=== PATIENT | female | born 1965 | race Two or more races ===

== ENCOUNTER → 2018-10-11 11:13 | Outpatient (CLI) | payer BC, SELFPAY ==
[2018-10-16 12:54] LABS: HPV APTIMA, High Risk Negative (Negative)
== END ==
PROVIDERS: Family Provider Family Medicine; PCP Family Medicine; Referring Provider Family Medicine; Visit Provider Family Medicine
DX: Z12.4 Encounter for screening for malignant neoplasm of cervix (principal)
CPT/HCPCS: 88175; G0145

== ENCOUNTER → 2024-01-12 | Outpatient (CLI) | payer BC, SELFPAY ==
--- OUTSIDE RECORDS SUMMARY | 2024-01-12 12:11 | XMS RPT_ITS | CCD ---
Author Organization [facility] Care Team Providers Care Electrical Plumbing Supervisor Name Role Phone RITU NAVARRO Primary Care Physician RITU NAVARRO Admitting Unavailable RITU NAVARRO Attending Unavailable RITU NAVARRO Primary Care Unavailable RITU NAVARRO Consulting Unavailable PROVIDER, UNKNOWN Consulting Unavailable PROVIDER, UNKNOWN Consulting Unavailable RITU NAVARRO Admitting Unavailable RITU NAVARRO Attending Unavailable RITU NAVARRO Primary Care Unavailable RITU NAVARRO Consulting Unavailable PROVIDER, UNKNOWN Consulting Unavailable PROVIDER, UNKNOWN Consulting Unavailable MICHELLE NAVARRONAH Admitting Unavailable RITU NAVARRO Attending Unavailable RITU NAVARRO Primary Care Unavailable RITU NAVARRO Consulting Unavailable PROVIDER, UNKNOWN Consulting Unavailable PROVIDER, UNKNOWN Consulting Unavailable Medications Current Medications Medication Drug Class(es) Dates Sig (Normalized) Sig (Original) acetaminophen 325 mg / HYDROcodone bitartrate 5 mg oral tablet (1 source) Opioid Agonist Start: 01-12-2021 End: 01-19-2021 Liberty 325- 5 mg oral tablet 1-2 tab(s), Oral, q6hr, PRN as needed for pain, Take 1 tab for pain scale 4-7 or take 2 tabs for pain scale 8-10. Do not exceed 6 tablets/day, X 7 day(s), # 42 tab(s), 0 Refill(s), Pharmacy: [id number], S/P cervical spinal fusion Herniate... Start Date: 01/12/21 Stop Date: 01/19/21 Status: Ordered docusate sodium 100 mg oral capsule (2 sources) Start: 01-12-2021 Colace 100 mg oral capsule Dose : 100 mg = 1 cap(s), Oral, BID, PRN Constipation, 0 Refill(s) Start Date: 01/12/21 Status: Ordered FLUoxetine 20 mg oral capsule (3 sources) Serotonin Reuptake Inhibitor Start: 01-10-2021 FLUoxetine 20 mg oral capsule Dose : 20 mg = 1 cap(s), Oral, qDay Start Date: 01/10/21 Status: Ordered gabapentin 100 mg oral capsule (2 sources) Anti-epileptic Agent Start: 01-12-2021 gabapentin 100 mg oral capsule Dose : 100 mg = 1 cap(s), Oral, TID, # 90 cap(s), 0 Refill(s), Pharmacy: [id number], S/P cervical spinal fusion Paresthesia, 152.4, cm, 01/10/21 15:49:00 EDT, Height, 74.3, kg, 01/10/21 15:49:00 EDT, Dosing Weight Start Date: 01/12/21 Status: Ordered ibuprofen 200 mg oral tablet (1 source) Nonsteroidal Anti-inflammatory Drug Start: 02-16-2021 ibuprofen 200 mg oral tablet Dose : 400 mg = 2 tab(s), Oral, q6hr, 0 Refill(s) Start Date: 02/16/21 Status: Ordered tiZANidine 2 mg oral tablet (2 sources) Central alpha-2 Adrenergic Agonist Start: 01-12-2021 tiZANidine 2 mg oral tablet Dose : 2 mg = 1 tab(s), Oral, TID, PRN as needed for muscle spasm, # 30 tab(s), 0 Refill(s), Pharmacy: [id number], 152.4, cm, 01/10/21 15:49:00 EDT, Height, kg, 01/10/21 15:49:00 EDT, Dosing Weight Start Date: 01/12/21 Status: Ordered Problems Problem Classification Problem Date Documented Date Episodic/Chronic Other aftercare (2 sources) Surgical follow-up 02-16-2021 Episodic Other connective tissue disease (1 source) H/O: arthrodesis; Translations: [Arthrodesis status] Onset: 01-12-2021 Episodic Other nervous system disorders (1 source) Spinal cord compression; Translations: [Unspecified cord compression] Onset: 01-12-2021 Chronic Other nervous system disorders (1 source) Spinal cord disease; Translations: [Disease of spinal cord, unspecified] Onset: 01-12-2021 Chronic Other nervous system disorders (1 source) Paresthesia; Translations: [Paresthesia of skin] Onset: 01-12-2021 Episodic Spondylosis; intervertebral disc disorders; other back problems (3 sources) Displacement of cervical intervertebral disc; Translations: [Other cervical disc displacement at C5-C6 level] Onset: 01-12-2021 Chronic Spondylosis; intervertebral disc disorders; other back problems (1 source) Spinal stenosis in cervical region; Translations: [Spinal stenosis, cervical region] Onset: 01-12-2021 Episodic Results Test Name Value Interpretation Reference Range Facility RADIOLOGY 12-20-2023 RADIOLOGY [place] [address] Patient: REMY GAY Phone#: : 1965 Age: 57 Gender: F Pt. Type: Out Account: [id number] Location: [facility] Ordering: RITU NAVARRO Exam Date: 12/15/2023/13:59 Family Phys: Charge Code: [id number] Physician: [place] Order #: [id number] Dose#: PROCEDURE: BILATERAL SCREENING BREAST TOMOSYNTHESIS MAMMOGRAM WITH CAD COMPARISON: [facility], 3D BILAT SCREEN, 10/11/2021, 13:01. [facility], 3D BILAT SCREEN, 11/08/2022, 14:08. INDICATIONS: Screening. BREAST COMPOSITION: Heterogeneously dense, which may obscure small masses. FINDINGS: DIAGNOSTIC CATEGORY 1--NEGATIVE NO CHANGE FROM COMPARISON ASSESSMENT. RIGHT BREAST: No significant suspicious finding. No significant change has occurred. LEFT BREAST: No significant suspicious finding. No significant change has occurred. RECOMMENDATIONS: ROUTINE MAMMOGRAM AND CLINICAL EVALUATION IN 12 MONTHS. PLEASE NOTE: A NORMAL MAMMOGRAM DOES NOT EXCLUDE THE POSSIBILITY OF BREAST CANCER. A CLINICALLY SUSPICIOUS PALPABLE LUMP SHOULD BE BIOPSIED. THIS FACILITY UTILIZES A REMINDER SYSTEM TO ENSURE THAT ALL PATIENTS RECEIVE REMINDER LETTERS FOR APPOINTMENTS. THIS INCLUDES REMINDERS FOR ROUTINE MAMMOGRAMS, DIAGNOSITC MAMMOGRAMS, OR OTHER BREAST IMAGING INTERVENTIONS WHEN APPROPRIATE. THIS PATIENT WILL BE PLACED IN THE APPROPRIATE REMINDER SYSTEM. Dictated by: Kandy Pandey MD on 12/20/2023 at 11:11 Approved by: Kandy Pandey MD on 12/20/2023 at 11:15 [facility] 3D MAMM BILAT SCREENon 12-14 3D MAMM BILAT SCREEN [place] [address] Patient: REMY GAY Phone#: : 1965 Age: 57 Gender: F Pt. Type: Out Account: [id number] Location: [id number] Ordering: RITU NAVARRO Exam Date: 12/15/2023/13:59 Family Phys: Charge Code: [id number] Physician: [place] Order #: [id number] Dose#: PROCEDURE: BILATERAL SCREENING BREAST TOMOSYNTHESIS MAMMOGRAM WITH CAD COMPARISON: [facility], 3D BILAT SCREEN, 10/11/2021, 13:01. [facility], 3D BILAT SCREEN, 11/08/2022, 14:08. INDICATIONS: Screening. BREAST COMPOSITION: Heterogeneously dense, which may obscure small masses. FINDINGS: DIAGNOSTIC CATEGORY 1--NEGATIVE NO CHANGE FROM COMPARISON ASSESSMENT. RIGHT BREAST: No significant suspicious finding. No significant change has occurred. LEFT BREAST: No significant suspicious finding. No significant change has occurred. RECOMMENDATIONS: ROUTINE MAMMOGRAM AND CLINICAL EVALUATION IN 12 MONTHS. PLEASE NOTE: A NORMAL MAMMOGRAM DOES NOT EXCLUDE THE POSSIBILITY OF BREAST CANCER. A CLINICALLY SUSPICIOUS PALPABLE LUMP SHOULD BE BIOPSIED. THIS FACILITY UTILIZES A REMINDER SYSTEM TO ENSURE THAT ALL PATIENTS RECEIVE REMINDER LETTERS FOR APPOINTMENTS. THIS INCLUDES REMINDERS FOR ROUTINE MAMMOGRAMS, DIAGNOSITC MAMMOGRAMS, OR OTHER BREAST IMAGING INTERVENTIONS WHEN APPROPRIATE. THIS PATIENT WILL BE PLACED IN THE APPROPRIATE REMINDER SYSTEM. Dictated by: Kandy Pandey MD on 12/20/2023 at 11:11 Approved by: Kandy Pandey MD on 12/20/2023 at 11:15 [facility] XR SPINE CERVICAL AP/LAT/FLE X/EXTon 05-19-2021 XR SPINE CERVICAL AP/LAT/FLEX/EXT ORIGINAL EXAMINATION: FIVE XRAY VIEWS OF THE CERVICAL SPINE INCLUDING FLEX/EX VIEWS 05/18/2021 10:10 am COMPARISON: MRI of the cervical spine on 01/10/2021 HISTORY: ORDERING SYSTEM PROVIDED HISTORY: Reason for Exam: cervical disc herniation - postoperative Surgery on 01/11/2021 FINDINGS: Anterior cervical disc fusion has been performed the C5-C6 level. The hardware is in satisfactory position. Cervical spine alignment is normal, including flexion and extension lateral views. The vertebral bodies are normal in height. Posterior elements are unremarkable. There is no prevertebral soft tissue swelling. IMPRESSION: Satisfactory postoperative appearance of anterior cervical disc fusion at C5-C6. Cervical spine alignment is normal. Interpreted by: Judson Bradford MD Preliminary Report By: Judson Bradford MD Electronically signed By Judson Bradford MD Dictated Date: 05/19/2021 2:08:18 AM Prelim Date: 05/19/2021 2:11:33 AM Sign Date: 05/19/2021 2:11:33 AM Ordering Provider: ALEXIS Suazo [facility] ([place]) .Auto Diffon 01-11-2021 Basophil, Absolute 0.00 10 3/mcL Normal 0.00-0.27 [facility] ([place]) Comment on above: Performed By: #### C BC, ADIFF, ANEU, FIB, APTT, PRO, BMP, GFR #### [address] [address] Basophils/100 WBC (Bld) 0.3 % Normal 0.0-2.5 [facility] ([place]) Comment on above: Performed By: #### C BC, ADIFF, ANEU, FIB, APTT, PRO, BMP, GFR #### [address] [address] Eosinophil, Absolute 0.00 10 3/mcL Normal 0.00-0.65 [facility] ([place]) Comment on above: Performed By: #### C BC, ADIFF, ANEU, FIB, APTT, PRO, BMP, GFR #### [address] [address] Eosinophils/100 WBC (Bld) 0.1 % Normal 0.0-6.0 [facility] ([place]) Comment on above: Performed By: #### C BC, ADIFF, ANEU, FIB, APTT, PRO, BMP, GFR #### [address] [address] Lymphocyte, Absolute 0.30 10 3/mcL Low 0.90-4.32 [facility] ([place]) Comment on above: Performed By: #### C BC, ADIFF, ANEU, FIB, APTT, PRO, BMP, GFR #### [address] [address] Lymphocytes/100 WBC (Bld) 2.9 % Low 20.0-40.0 [facility] ([place]) Comment on above: Performed By: #### C BC, ADIFF, ANEU, FIB, APTT, PRO, BMP, GFR #### [address] [address] Monocyte, Absolute 0.20 10 3/mcL Normal 0.09-1.40 [facility] ([place]) Comment on above: Performed By: #### C BC, ADIFF, ANEU, FIB, APTT, PRO, BMP, GFR #### [address] [address] Monocytes/100 WBC (Bld) 1.9 % Low 2.0-13.0 [facility] ([place]) Comment on above: Performed By: #### C BC, ADIFF, ANEU, FIB, APTT, PRO, BMP, GFR #### [address] [address] Neutrophils/100 WBC (Bld) 94.8 % High 50.0-75.0 [facility] ([place]) Comment on above: Performed By: #### C BC, ADIFF, ANEU, FIB, APTT, PRO, BMP, GFR #### [address] [address] .GFRon 01-11-2021 GFR >60 Normal [facility] ([place]) Comment on above: Result Comment: GFR Population mean for , Non- Americans Ages 20-29 = 116 mL/min/1.73 sq.m. Ages 30-39 = 107 mL/min/1.73 sq.m. Ages 40-49 = 99 mL/min/1.73 sq.m. Ages 50-59 = 93 mL/min/1.73 sq.m. Ages 60-69 = 85 mL/min/1.73 sq.m. Ages 70+ = 75 mL/min/1.73 sq.m. Chronic Kidney Disease: Less than 60 mL/min/1.73 square meters End Stage Renal Disease: Less than 15 mL/min/1.73 square meters Performed By: #### C BC, ADIFF, ANEU, FIB, APTT, PRO, BMP, GFR #### [address] [address] GFR Non- >60 Normal [facility] ([place]) Comment on above: Result Comment: GFR Population mean for , Non- Americans Ages 20-29 = 116 mL/min/1.73 sq.m. Ages 30-39 = 107 mL/min/1.73 sq.m. Ages 40-49 = 99 mL/min/1.73 sq.m. Ages 50-59 = 93 mL/min/1.73 sq.m. Ages 60-69 = 85 mL/min/1.73 sq.m. Ages 70+ = 75 mL/min/1.73 sq.m. Chronic Kidney Disease: Less than 60 mL/min/1.73 square meters End Stage Renal Disease: Less than 15 mL/min/1.73 square meters Performed By: #### C BC, ADIFF, ANEU, FIB, APTT, PRO, BMP, GFR #### [address] [address] .NEUABSon 01-11-2021 Neutrophil, Absolute 11.20 10 3/mcL High 2.25-8.10 [facility] ([place]) Comment on above: Performed By: #### C BC, ADIFF, ANEU, FIB, APTT, PRO, BMP, GFR #### [address] [address] APTTon 01-11-2021 aPTT Coag (Bld) [Time] 30.3 s Normal 25.0-35.0 [facility] ([place]) Comment on above: Result Comment: For Heparin anticoagulation therapy, the recommended therapeutic range is: 54-77 seconds (APTT Correlation with Anti-Xa therapeutic range of 0.3-0.7 units/ml). PLEASE REFERENCE THE PHARMACY PROTOCOL FOR DOSING. Performed By: #### C BC, ADIFF, ANEU, FIB, APTT, PRO, BMP, GFR #### [address] [address] Heparin dose (APTT) None Normal [facility] ([place]) Comment on above: Performed By: #### C BC, ADIFF, ANEU, FIB, APTT, PRO, BMP, GFR #### [address] [address] BMPon 01-11-2021 BUN/Creatinine Ratio 19.5 ratio Normal 10.0-22.0 [facility] ([place]) Comment on above: Performed By: #### C BC, ADIFF, ANEU, FIB, APTT, PRO, BMP, GFR #### [address] [address] Calcium [Mass/Vol] 9.4 mg/dL Normal 8.7-10.4 [facility] ([place]) Comment on above: Result Comment: No te - New Reference Range in effect 19 Performed By: #### C BC, ADIFF, ANEU, FIB, APTT, PRO, BMP, GFR #### [address] [address] Chloride [Moles/Vol] 108 mmol/L Normal 98-110 [facility] ([place]) Comment on above: Performed By: #### C BC, ADIFF, ANEU, FIB, APTT, PRO, BMP, GFR #### [address] [address] CO2 [Moles/Vol] 26 mmol/L Normal 22-32 [facility] ([place]) Comment on above: Performed By: #### C BC, ADIFF, ANEU, FIB, APTT, PRO, BMP, GFR #### [address] [address] Creatinine [Mass/Vol] 0.82 mg/dL Normal 0.50-1.20 [facility] ([place]) Comment on above: Performed By: #### C BC, ADIFF, ANEU, FIB, APTT, PRO, BMP, GFR #### [address] [address] Electrolyte Balance 7.0 mEq/L Normal 4.0-15.0 [facility] ([place]) Comment on above: Performed By: #### C BC, ADIFF, ANEU, FIB, APTT, PRO, BMP, GFR #### [place] [id number] Glucose [Mass/Vol] 195 mg/dL High 70-110 [facility] ([place]) Comment on above: Performed By: #### C BC, ADIFF, ANEU, FIB, APTT, PRO, BMP, GFR #### [place] [id number] Potassium [Moles/Vol] 4.6 mmol/L Normal 3.5-5.0 [facility] ([place]) Comment on above: Result Comment: Spec imen slightly hemolyzed. Performed By: #### C BC, ADIFF, ANEU, FIB, APTT, PRO, BMP, GFR #### [place] [id number] Sodium [Moles/Vol] 141 mmol/L Normal 136-145 [facility] ([place]) Comment on above: Performed By: #### C BC, ADIFF, ANEU, FIB, APTT, PRO, BMP, GFR #### [place] [address] Urea nitrogen [Mass/Vol] 16.0 mg/dL Normal 8.0-22.0 [facility] ([place]) Comment on above: Performed By: #### C BC, ADIFF, ANEU, FIB, APTT, PRO, BMP, GFR #### [place] [id number] CBCon 01-11-2021 Erythrocyte distribution width (RBC) [Ratio] 14.2 % Normal 11.5-15.5 [facility] ([place]) Comment on above: Performed By: #### C BC, ADIFF, ANEU, FIB, APTT, PRO, BMP, GFR #### [place] [id number] Hematocrit (Bld) [Volume fraction] 38.7 % Normal 34.0-46.0 [facility] ([place]) Comment on above: Performed By: #### C BC, ADIFF, ANEU, FIB, APTT, PRO, BMP, GFR #### [place] [address] Hgb 12.9 G/dL Normal 12.0-16.0 [facility] ([place]) Comment on above: Performed By: #### C BC, ADIFF, ANEU, FIB, APTT, PRO, BMP, GFR #### [place] [address] MCH (RBC) [Entitic mass] 29.6 pg Normal 27.0-33.0 [facility] ([place]) Comment on above: Performed By: #### C BC, ADIFF, ANEU, FIB, APTT, PRO, BMP, GFR #### [place] [address] MCHC 33.2 G/dL Normal 32.0-36.0 [facility] ([place]) Comment on above: Performed By: #### C BC, ADIFF, ANEU, FIB, APTT, PRO, BMP, GFR #### [place] [address] MCV (RBC) [Entitic vol] 89.1 fL Normal 80.0-99.0 [facility] ([place]) Comment on above: Performed By: #### C BC, ADIFF, ANEU, FIB, APTT, PRO, BMP, GFR #### [place] [address] Platelet 262 10 3/mcL Normal 150-450 [facility] ([place]) Comment on above: Performed By: #### C BC, ADIFF, ANEU, FIB, APTT, PRO, BMP, GFR #### [place] [address] Platelet mean volume (Bld) [Entitic vol] 7.8 fL Normal 6.6-10.5 [facility] ([place]) Comment on above: Performed By: #### C BC, ADIFF, ANEU, FIB, APTT, PRO, BMP, GFR #### [place] [id number] [address] [place] [address] RBC 4.35 10 6/mcL Normal 4.10-5.30 [facility] ([place]) Comment on above: Performed By: #### C BC, ADIFF, ANEU, FIB, APTT, PRO, BMP, GFR #### [facility] [address] [place], [place] [id number] WBC 11.80 10 3/mcL High 4.50-10.80 [facility] ([place]) Comment on above: Performed By: #### C BC, ADIFF, ANEU, FIB, APTT, PRO, BMP, GFR #### [facility] [address] [place] [address] FIBon 01-11-2021 Fibrinogen 484 mg/dL Normal 250-550 [facility] ([place]) Comment on above: Performed By: #### C BC, ADIFF, ANEU, FIB, APTT, PRO, BMP, GFR #### [place] [address] LABORATORYOrdered By: Ivy Shields on 01-11-2021 aPTT Coag (PPP) [Time] 30.3 s Invalid Interpretation Code 25.0 - 35.0 seconds Auto Coag SS Fibrinogen Coag (PPP) [Mass/Vol] 484 mg/dL Invalid Interpretation Code 250 - 550 mg/dL AH Auto Coag SS Heparin dose (APTT) None Invalid Interpretation Code AH Auto Coag SS INR Coag (PPP) [Relative time] 1.0 {INR} Invalid Interpretation Code Auto Coag SS PT Coag (PPP) [Time] 11.8 s Invalid Interpretation Code 9.0 - 14.8 seconds AH Auto Coag SS LABORATORYOrdered By: SYSTEM SYSTEM on 01-11-2021 Basophils (Bld) [#/Vol] 0.00 103/mcL Invalid Interpretation Code 0.00 - 0.27 10^3/mcL Remisol SS Basophils/100 WBC (Bld) 0.3 % Invalid Interpretation Code 0.0 - 2.5 % Remisol SS Calcium [Mass/Vol] 9.4 mg/dL Invalid Interpretation Code 8.7 - 10.4 mg/dL ADM SS Chloride [Moles/Vol] 108 mmol/L Invalid Interpretation Code 98 - 110 mEq/L AH ADM SS CO2 [Moles/Vol] 26 mmol/L Invalid Interpretation Code 22 - 32 mEq/L AH ADM SS Creatinine [Mass/Vol] 0.82 mg/dL Invalid Interpretation Code 0.50 - 1.20 mg/dL AH ADM SS Electrolyte Balance 7.0 mEq/L Invalid Interpretation Code 4.0 - 15.0 mEq/L AH ADM SS Eosinophils (Bld) [#/Vol] 0.00 103/mcL Invalid Interpretation Code 0.00 - 0.65 10^3/mcL AH Remisol SS Eosinophils/100 WBC (Bld) 0.1 % Invalid Interpretation Code 0.0 - 6.0 % AH Remisol SS Erythrocyte distribution width (RBC) [Ratio] 14.2 % Invalid Interpretation Code 11.5 - 15.5 % AH Remisol SS GFR/1.73 sq M.predicted among blacks MDRD (S/P/Bld) [Vol rate/Area] ml/min/1.73sqm Invalid Interpretation Code AH Chemistry S GFR/1.73 sq M.predicted among non-blacks MDRD (S/P/Bld) [Vol rate/Area] ml/min/1.73sqm Invalid Interpretation Code Chemistry S Glucose [Mass/Vol] 195 mg/dL Invalid Interpretation Code 70 - 110 mg/dL AH ADM SS Hematocrit (Bld) [Volume fraction] 38.7 % Invalid Interpretation Code 34.0 - 46.0 % AH Remisol SS Hemoglobin (Bld) [Mass/Vol] 12.9 G/dL Invalid Interpretation Code 12.0 - 16.0 G/dL AH Remisol SS Lymphocytes (Bld) [#/Vol] 0.30 103/mcL Invalid Interpretation Code 0.90 - 4.32 10^3/mcL AH Remisol SS Lymphocytes/100 WBC (Bld) 2.9 % Invalid Interpretation Code 20.0 - 40.0 % AH Remisol SS MCH (RBC) [Entitic mass] 29.6 pg Invalid Interpretation Code 27.0 - 33.0 pg AH Remisol SS MCHC (RBC) [Mass/Vol] 33.2 G/dL Invalid Interpretation Code 32.0 - 36.0 G/dL AH Remisol SS MCV (RBC) [Entitic vol] 89.1 fL Invalid Interpretation Code 80.0 - 99.0 fL AH Remisol SS Monocytes (Bld) [#/Vol] 0.20 103/mcL Invalid Interpretation Code 0.09 - 1.40 10^3/mcL AH Remisol SS Monocytes/100 WBC (Bld) 1.9 % Invalid Interpretation Code 2.0 - 13.0 % AH Remisol SS Neutrophils (Bld) [#/Vol] 11.20 103/mcL Invalid Interpretation Code 2.25 - 8.10 10^3/mcL AH Remisol SS Neutrophils/100 WBC (Bld) 94.8 % Invalid Interpretation Code 50.0 - 75.0 % AH Remisol SS Platelet mean volume (Bld) [Entitic vol] 7.8 fL Invalid Interpretation Code 6.6 - 10.5 fL AH Remisol SS Platelets (Bld) [#/Vol] 262 103/mcL Invalid Interpretation Code 150 - 450 10^3/mcL AH Remisol SS Potassium [Moles/Vol] 4.6 mmol/L Invalid Interpretation Code 3.5 - 5.0 mEq/L AH ADM SS Comment on above: Result Comment: Spec imen slightly hemolyzed. RBC (Bld) [#/Vol] 4.35 106/mcL Invalid Interpretation Code 4.10 - 5.30 10^6/mcL AH Remisol SS Sodium [Moles/Vol] 141 mmol/L Invalid Interpretation Code 136 - 145 mEq/L AH ADM SS Urea nitrogen [Mass/Vol] 16.0 mg/dL Invalid Interpretation Code 8.0 - 22.0 mg/dL AH ADM SS Urea nitrogen/Creatinine [Mass ratio] 19.5 ratio Invalid Interpretation Code 10.0 - 22.0 ratio AH ADM SS WBC (Bld) [#/Vol] 11.80 103/mcL Invalid Interpretation Code 4.50 - 10.80 10^3/mcL AH Remisol SS PROon 01-11-2021 INR Coag (PPP) [Relative time] 1.0 {INR} Normal [facility] ([place]) Comment on above: Result Comment: The [employer] (CHEST, 1992, 102:312S-25S) recommended therapeutic range for oral anticoagulant therapy is: LOW RISK: Prophylaxis of venous thrombosis INR: 2.0-3.0 Treatment of pulmonary embolism 2.0-3.0 Prevention of systemic embolism 2.0-3.0 HIGH RISK: Mechanical prosthetic valves 2.5-3.5 Performed By: #### C BC, ADIFF, ANEU, FIB, APTT, PRO, BMP, GFR #### [address] [address] PT Coag (PPP) [Time] 11.8 s Normal 9.0-14.8 [facility] ([place]) Comment on above: Result Comment: Effe ctive 10/02/07, Protime results may be affected by some antibiotics (i.e. Ciprofloxacin, Azithromycin, Bactrim) which may potentiate the action of oral anticoagulants, with further increases in Protime/INR. Performed By: #### C BC, ADIFF, ANEU, FIB, APTT, PRO, BMP, GFR #### [address] [address] XR FLUORO 1-2 HRS TECH TIMEo n 01-11-2021 XR FLUORO 1-2 HRS TECH TIME ORIGINAL EXAMINATION: SPOT FLUOROSCOPIC IMAGES 01/11/2021 8:55 am TECHNIQUE: Fluoroscopy was provided by the radiology department for procedure. Radiologist was not present during examination. FLUOROSCOPY DOSE AND TYPE OR TIME AND EXPOSURES: Fluoro time: 12.5 seconds Radiation dose: 1.27 mGy 3 images were saved COMPARISON: MRI of the cervical spine on 01/10/2021 HISTORY: ORDERING SYSTEM PROVIDED HISTORY: Reason for Exam: CERV HNP Intraprocedural imaging. FINDINGS: 3 spot images of the cervical spine were obtained. Guidance for anterior cervical disc fusion at the C5-C6 level was provided. IMPRESSION: Intraprocedural fluoroscopic spot images as above. See separate procedure report for more information. Interpreted by: Judson Bradford MD Preliminary Report By: Judson Bradford MD Electronically signed By Judson Bradford MD Dictated Date: 01/11/2021 9:24:56 AM Prelim Date: 01/11/2021 9:26:54 AM Sign Date: 01/11/2021 9:26:54 AM Ordering Provider: ALEXIS Suazo [facility] ([place]) MRI SPINE CERVICAL W/O CONTR Elias 01-10-2021 MRI SPINE CERVICAL W/O CONTRAST ORIGINAL EXAMINATION: MRI OF THE CERVICAL SPINE WITHOUT CONTRAST 01/10/2021 2:55 am TECHNIQUE: Multiplanar multisequence MRI of the cervical spine was performed without the administration of intravenous contrast. COMPARISON: None. HISTORY: ORDERING SYSTEM PROVIDED HISTORY: Reason for Exam: Paresthesias FINDINGS: BONES/ALIGNMENT: There is normal alignment of the spine. The vertebral body heights are maintained. The bone marrow signal appears unremarkable. SPINAL CORD: There is mild cord edema at C5-C6 secondary to a prominent disc protrusion with ligamentum flavum hypertrophy. SOFT TISSUES: No paraspinal mass identified. C2-C3: There is no significant disc protrusion, spinal canal stenosis or neural foraminal narrowing. C3-C4: There is no significant disc protrusion, spinal canal stenosis or neural foraminal narrowing. C4-C5: There is no significant disc protrusion, spinal canal stenosis or neural foraminal narrowing. C5-C6: Disc protrusion at C5-C6 with moderate to severe narrowing of the central spinal canal, ligamentum flavum hypertrophy. Moderate narrowing of the neural foramen on the left and on the right. C6-C7: There is no significant disc protrusion, spinal canal stenosis or neural foraminal narrowing. C7-T1: There is no significant disc protrusion, spinal canal stenosis or neural foraminal narrowing. IMPRESSION: Prominent disc protrusion at C5-C6 with moderate to severe narrowing of the spinal canal at this level with bilateral at least moderate neural foraminal stenosis. Mild cord edema is present at the level of the disc protrusion. Interpreted by: Galo Bennett MD Preliminary Report By: Galo Bennett MD Electronically signed By Galo Bennett MD Dictated Date: 01/10/2021 3:37:24 AM Prelim Date: 01/10/2021 3:41:27 AM Sign Date: 01/10/2021 3:41:27 AM Ordering Provider: OSMANY Suazo [facility] ([place]) Vital Signs Date Time Vital Sign Value Performing Clinician Matthew mccollum 01-12-2021 11:01-0400 Body temperature 98.24 [degF] DR ALEXIS LOOMIS MD [facility] 01-12-2021 11:01-0400 Diastolic blood pressure 62 mm[Hg] DR ALEXIS LOOMIS MD [facility] 01-12-2021 11:01-0400 Heart rate 94 /min DR ALEXIS LOOMIS MD [facility] 01-12-2021 11:01-0400 Reason For Taking VItal Signs DR ALEXIS LOOMIS MD [facility] 01-12-2021 11:01-0400 Respiratory rate 16 /min DR ALEXIS LOOMIS MD [facility] 01-12-2021 11:01-0400 Systolic blood pressure 121 mm[Hg] DR ALEXIS LOOMIS MD [facility] 01-12-2021 07:35-0400 Body temperature 98.06 [degF] DR ALEXIS LOOMIS MD [facility] 01-12-2021 07:35-0400 Diastolic blood pressure 57 mm[Hg] DR ALEXIS LOOMIS MD [facility] 01-12-2021 07:35-0400 Heart rate 86 /min DR ALEXIS LOOMIS MD [facility] 01-12-2021 07:35-0400 Mean blood pressure 78 mm[Hg] DR ALEXIS LOOMIS MD [facility] 01-12-2021 07:35-0400 Reason For Taking VItal Signs DR ALEXIS LOOMIS MD [facility] 01-12-2021 07:35-0400 Respiratory rate 16 /min DR ALEXIS LOOMIS MD [facility] 01-12-2021 07:35-0400 Systolic blood pressure 119 mm[Hg] DR ALEXIS LOOMIS MD [facility] 01-12-2021 03:22-0400 Body temperature 98.42 [degF] DR ALEXIS LOOMIS MD [facility] 01-12-2021 03:22-0400 Diastolic blood pressure 71 mm[Hg] DR ALEXIS LOOMIS MD [facility] 01-12-2021 03:22-0400 Heart rate 90 /min DR ALEXIS LOOMIS MD [facility] 01-12-2021 03:22-0400 Mean blood pressure 93 mm[Hg] DR ALEXIS LOOMIS MD [facility] 01-12-2021 03:22-0400 Respiratory rate 16 /min DR ALEXIS LOOMIS MD [facility] 01-12-2021 03:22-0400 Systolic blood pressure 136 mm[Hg] DR ALEXIS LOOMIS MD [facility] 01-11-2021 22:59-0400 Mean blood pressure 92 mm[Hg] DR ALEXIS LOOMIS MD [facility] 01-11-2021 14:47-0400 Heart rate 84 /min DR ALEXIS LOOMIS MD [facility] 01-11-2021 14:47-0400 Reason For Taking VItal Signs DR ALEXIS LOOMIS MD [facility] 01-11-2021 10:52-0400 Heart rate 80 /min DR ALEXIS LOOMIS MD [facility] 01-11-2021 10:25-0400 Heart rate 78 /min DR ALEXIS LOOMIS MD [facility] 01-11-2021 10:03-0400 Body temperature 96.98 [degF] DR ALEXIS LOOMIS MD [facility] 01-11-2021 10:03-0400 Diastolic Blood Pressure NBP [address] ALEXIS LOOMIS MD [facility] 01-11-2021 10:03-0400 Mean blood pressure 93 mm[Hg] DR ALEXIS LOOMIS MD [facility] 01-11-2021 10:03-0400 Systolic Blood Pressure NBP [address] ALEXIS LOOMIS MD [facility] 01-11-2021 09:53-0400 Diastolic Blood Pressure NBP [address] ALEXIS LOOMIS MD [facility] 01-11-2021 09:53-0400 Mean blood pressure 94 mm[Hg] DR ALEXIS LOOMIS MD [facility] 01-11-2021 09:53-0400 Systolic Blood Pressure NBP [address] ALEXIS LOOMIS MD [facility] 01-11-2021 09:36-0400 Diastolic Blood Pressure NBP [address] ALEXIS LOOMIS MD [facility] 01-11-2021 09:36-0400 Mean blood pressure 92 mm[Hg] DR ALEXIS LOOMIS MD [facility] 01-11-2021 09:36-0400 Systolic Blood Pressure NBP [address] ALEXIS LOOMIS MD [facility] 01-11-2021 09:06-0400 Body temperature 96.8 [degF] DR ALEXIS LOOMIS MD [facility] 01-11-2021 08:45-0400 Body temperature 96.26 [degF] DR ALEXIS LOOMIS MD [facility] 01-11-2021 08:40-0400 Body temperature 96.24 [degF] DR ALEXIS LOOMIS MD [facility] 01-11-2021 08:35-0400 Body temperature 96.22 [degF] DR ALEXIS LOOMIS MD [facility] 01-10-2021 15:49-0400 Body height 152.[address] ALEXIS LOOMIS MD [facility] 01-10-2021 15:49-0400 Body weight 74.[address] ALEXIS LOOMIS MD [facility] 01-10-2021 15:49-0400 Body weight 31.99 kg/m2 DR ALEXIS LOOMIS MD [facility] 01-09-2021 23:07-0400 Body weight 74.[address] ALEXIS LOOMIS MD [facility] Encounters Encounter Date Encounter Type Care Provider Facility Start: 12-20-2023 End: 12-20-2023 ambulatory [facility] Start: 12-15-2023 End: 12-15-2023 ambulatory [facility] Start: 06-28-2023 ambulatory [place] Start: 05-18-2021 End: 05-18-[address] LAEXIS LOOMIS MD [facility] Start: 02-16-2021 End: 02-16-[address] ALEXIS LOOMIS MD [facility] Start: 01-09-2021 End: 01-12-2021 Evaluation and management of inpatient DR ALEXIS LOOMIS MD [facility] Procedures Date Procedure Procedure Detail Performing Clinician Start: 01-11-2021 Cervical (qualifier value) DR ALEXIS LOOMIS MD section DR ALEXIS BLAKELY MD Immunizations Immunization Date Immunization Notes Care Provider Fa cili 2020 influenza virus vaccine, unspecified formulation DR ALEXIS LOOMIS MD [facility] 04-20-2020 SARS-CoV-2 (COVID-19 ) mRNA-[address] ALEXIS LOOMIS MD [facility] 03-20-2020 SARS-CoV-2 (COVID-19 ) mRNA-[address] ALEXIS LOOMIS MD [facility] Payers Date Payer Category Payer Unknown [id number] 1965 Unknown [id number] Unknown [id number] Social History Date Type Detail Facility Start: 01-10-2021 Never smoked shad castellon (finding) [facility] Sex Assigned At Female [facility] Medical Equipment Procedure Code Equipment Code Equipment Origin al Text Equipment Identifier Dates FDA Start: 01-11-2021 FDA Start: 01-11-2021 FDA Start: 01-11-2021 FDA Start: 01-11-2021 FDA Start: 01-11-2021 FDA Start: 01-11-2021 FDA Start: 01-11-2021 FDA Start: 01-11-2021 FDA Start: 01-11-2021 Hospital Discharge instructions 01-12-2021 Note Date & Type Note Facility 01-12-2021 Hospital Discharg e instructions Patient Education 01/12/2021 12:21:17 Anterior Cervical Diskectomy and Fusion, Care After Anterior Cervical Diskectomy and Fusion, Care After This sheet gives you information about how to care for yourself after your procedure. Your health care provider may also give you more specific instructions. If you have problems or questions, contact your health care provider. What can I expect after the procedure? After the procedure, it is common to have: Neck pain. Discomfort when swallowing. Slight hoarseness. Follow these instructions at home: If you have a neck brace: Wear it as told by your health care provider. Remove it only as told by your health care provider. Keep the brace clean and dry. Ask your health care provider if you should remove the brace to bathe or shower. Incision care Follow instructions from your health care provider about how to take care of your incision. Make sure you: ?Wash your hands with soap and water before and after you change your bandage (dressing). If soap and water are not available, use hand supervisor public message service. ?Change your dressing as told by your health care provider. ?Leave stitches (sutures), skin glue, or adhesive strips in place. These skin closures may need to stay in place for 2 weeks or longer. If adhesive strip edges start to loosen and curl up, you may trim the loose edges. Do not remove adhesive strips completely unless your health care provider tells you to do that. Check your incision area every day for signs of infection. Check for: ?Redness, swelling, or pain. ?Fluid or blood. ?Warmth. ?Pus or a bad smell. Managing pain, stiffness, and swelling Take xhqo-twk-dtwyquk and prescription medicines only as told by your health care provider. If directed, put ice on the injured area. ?If you have a removable brace, remove it as told by your health care provider. ?Put ice in a plastic bag. ?Place a towel between your skin and the bag. ?Leave the ice on for 20 minutes, 2 3 times a day. Activity Return to your normal activities as told by your health care provider. Ask your health care provider what activities are safe for you. Do exercises as told by your health care provider. Do not take baths, swim, or use a hot tub until your health care provider approves. Do not lift anything that is heavier than 10 lb (4.5 kg), or the limit that you are told, until your health care provider says that it is safe. General instructions Ask your health care provider if the medicine prescribed to you: ?Requires you to avoid driving or using heavy machinery. ?Can cause constipation. You may need to take actions to prevent or treat constipation, such as: ?Drink enough fluid to keep your urine pale yellow. ?Take xcts-dur-kcnuqrc or prescription medicines. ?Eat foods that are high in fiber, such as beans, whole grains, and fresh fruits and vegetables. ?Limit foods that are high in fat and processed sugars, such as fried and sweet foods. Do not use any products that contain nicotine or tobacco, such as cigarettes, e-cigarettes, and chewing tobacco. These can delay healing. If you need help quitting, ask your health care provider. Keep all follow-up visits and physical therapy appointments as told by your health care provider. This is important. Contact a health care provider if you have: A fever. Redness, swelling, or pain around your incision. Fluid or blood coming from your incision. Pus or a bad smell coming from your incision. Pain that is not controlled by your pain medicine. Increasing hoarseness or trouble swallowing. Get help right away if you have: Severe pain. Sudden numbness or weakness in your arms. Warmth, tenderness, or swelling in your calf. Chest pain. Difficulty breathing. Summary After the procedure, it is common to have neck pain, discomfort when swallowing, and slight hoarseness. Follow instructions from your health care provider about how to take care of your incision. Check your incision area every day for signs of infection. Return to your normal activities as told by your health care provider. Ask your health care provider what activities are safe for you. Contact a health care provider if you have signs of infection at your incision. This information is not intended to replace advice given to you by your health care provider. Make sure you discuss any questions you have with your health care provider. Document Released: 04/01/2016 Document Revised: 11/29/2018 Document Reviewed: 11/29/2018 [employer] Patient Education 2020 [employer]. 01/12/2021 12:21:14 Anterior Cervical Diskectomy and Fusion Anterior Cervical Diskectomy and Fusion Anterior cervical diskectomy and fusion is a surgery to remove and replace an intervertebral disk. Intervertebral disks are plates of cartilage located between the bones of the spine. This surgery is done when an intervertebral disk in the neck puts pressure on the spine or on a nerve. The surgery is done through the front (anterior) part of the neck. During the surgery, the damaged disk is removed and replaced with a plastic implant, a bone from another part of the body (bone graft), or both. Sometimes metal plates and screws (hardware) are also put in the neck to help keep the implant or bone graft in place and to allow the bones to grow together (fuse). Tell a health care provider about: Any allergies you have. All medicines you are taking, including vitamins, herbs, eye drops, creams, and thrj-fwh-gfkojyt medicines. Any problems you or family members have had with anesthetic medicines. Any blood disorders you have. Any surgeries you have had. Any medical conditions you have or have had. Whether you are or may be . What are the risks? Generally, this is a safe procedure. However, problems may occur, including: Infection. Bleeding, which can sometimes require a blood transfusion. Injury to surrounding structures, including nerves. Leakage of fluid from the brain or spinal cord (cerebrospinal fluid). Blood clots. Temporary breathing difficulties. What happens before the procedure? Medicines Ask your health care provider about: Changing or stopping your regular medicines. This is especially important if you are taking diabetes medicines or blood thinners. Taking medicines such as aspirin and ibuprofen. These medicines can thin your blood. Do not take these medicines unless your health care provider tells you to take them. Taking zllo-djh-ktyhrbn medicines, vitamins, herbs, and supplements. Staying hydrated Follow instructions from your health care provider about hydration, which may include: Up to 2 hours before the procedure you may continue to drink clear liquids, such as water, clear fruit juice, black coffee, and plain tea. Eating and drinking Follow instructions from your health care provider about eating and drinking, which may include: 8 hours before the procedure stop eating heavy meals or foods, such as meat, fried foods, or fatty foods. 6 hours before the procedure stop eating light meals or foods, such as toast or cereal. 6 hours before the procedure stop drinking milk or drinks that contain milk. 2 hours before the procedure stop drinking clear liquids. General instructions Do not use any products that contain nicotine or tobacco for at least 4 weeks before the procedure. These products include cigarettes, e-cigarettes, and chewing tobacco. If you need help quitting, ask your health care provider. Ask your health care provider: ?How your surgery site will be marked. ?What steps will be taken to help prevent infection. These may include: ?Removing hair at the surgery site. ?Washing skin with a germ-killing soap. ?Receiving antibiotic medicine. What happens during the procedure? An IV will be inserted into one of your veins. You will be given one or more of the following: ?A medicine to help you relax (sedative). ?A medicine to make you fall asleep (general anesthetic). A breathing tube will be placed. Your neck will be cleaned with a germ-killing solution (antiseptic solution). Your surgeon will make an incision in the front of your neck. Your neck muscles will be spread apart. The damaged disk and any damaged bone will be removed. The area where the disk was removed will be filled with a small plastic implant, a bone graft, or both. Hardware may be put in your neck. The incision will be closed with stitches (sutures). Adhesive strips or skin glue may be placed across the incision. A bandage (dressing) will be applied over the incision. The procedure may vary among health care providers and hospitals. What happens after the procedure? Your blood pressure, heart rate, breathing rate, and blood oxygen level will be monitored until you leave the hospital or clinic. You will be monitored for any signs of complications from the procedure, such as: ?Too much bleeding from the incision site. ?A buildup of blood under your skin at the surgical site. ?Difficulty breathing. You may continue to receive antibiotics. You can start to eat as soon as you feel comfortable. You may be given a neck brace to wear. This brace limits your neck movement while your bones are fusing. Do not drive for 24 hours if you were given a sedative during your procedure. Summary Anterior cervical diskectomy and fusion is a surgery to remove and replace an intervertebral disk. The surgery is done through the front (anterior) part of the neck. Before the procedure, follow instructions from your health care provider about changing or stopping your medicines and about eating and drinking. During the procedure, the damaged disk and any damaged bone will be removed. After the procedure, you will be monitored for any signs of complications from the procedure. You may be given a neck brace to wear. This brace limits your neck movement while your bones are fusing. This information is not intended to replace advice given to you by your health care provider. Make sure you discuss any questions you have with your health care provider. Document Released: 02/22/2010 Document Revised: 11/29/2018 Document Reviewed: 11/29/2018 [employer] Patient Education 2020 [employer]. Follow Up Care 01/09/2021 23:05:33 With:[facility] [phone] - You will receive a phone call to schedule your first appointment. Address:Unknown When: Unknown With:ALEXIS LOOMIS MD, Neurosurgery, Neurosurgery Address: [address] [place] [id number] [phone] When:01/28/2021 10:45:00 [facility] Evaluation + Plan note Note Date & Type Note Facility Evaluation + Plan note Future Appointments Appointment Date:01/28/2021 10:45:00 AM Scheduled Provider:ALEXIS LOOMIS MD Location:NEUROS Appointment Type:NS Post Op [facility] Evaluation + Plan note Note Date & Type Note Facility Evaluation + Plan note Future Appointments Appointment Date:05/18/2021 10:15:00 AM Scheduled Provider:ALEXIS LOOMIS MD Location:[facility] Appointment Type:NS OV [facility] Hospital course Narrative Note Date & Type Note Facility Hospital course Narrative No data available for this section [facility] Hospital Discharge instructions Note Date & Type Note Facility Hospital Discharge instructions No data available for this section [facility] Summary Purpose Family History No Family History Records FoundNo Family History Records Found Advance Directives No Advanced Directives Records FoundNo Advanced Directives Records Found Additional Source Comments INFORMATION SOURCE (unrecogn ized section and content) DATE CREATED AUTHOR 05/22/2021 [facility] ([place]) DATE CREATED AUTHOR AUTHOR'S ORGANIZ ATION 12/20/2023 [facility] FOR RECORDS PERTAINING TO PATIENTS WHO ARE OR HAVE BEEN ENROLLED IN A CHEMICAL DEPENDENCY/SUBSTANCEABUSE PROGRAM, SOME INFORMATION MAY BE OMITTED. This clinical summary was aggregated from multiple sources. Caution should be exercised in using it in the provision of clinical care. This summary normalizes information from multiple sources, and as a consequence, information in this document may materially change the coding, format and clinical context of patient data. In addition, data may be omitted in some cases. CLINICAL DECISIONS SHOULD BE BASED ON THE PRIMARY CLINICAL RECORDS. [employer] [facility]. provides no warranty or guarantee of the accuracy or completeness of information in this document.
[2024-01-12 15:05] LABS: Absolute Lymphocyte Count 1.62 X10^3/uL (0.83-4.51); Absolute Neutrophil Count 4.4 X10^3/uL (2.0-7.7); Basophil# 0.04 X10^3/uL; Basophil% 0.6 % (0-1); Eosinophil# 0.18 X10^3/uL; Eosinophils% 2.7 % (0-5); Hematocrit 38.2 % (37-47); Hemoglobin 12.8 g/dL (12.0-15.0); Lymphocyte # 1.62 X10^3/ul (0.83-4.51); Mean Corp Hgb Conc 33.5 g/dL (32-36); Mean Corpuscular Volume 86.4 fL (81-99); Mean Platelet Vol. 10.4 fl (6.2-12.0); Monocyte# 0.47 X10^3/uL; NRBC Flagged by Analyzer 0 % (0-5); Neutrophil # 4.42 X10^3/uL (2.7-7.7); Neutrophil % 65.4 % (47-70); Platelet Count 277 K/mm3 (150-450); RBC Distribution Width CV 13.5 % (11.6-14.6); Red Blood Count 4.42 M/mm3 (4.2-5.4); White Blood Count 6.8 K/mm3 (4.4-11.0)
[2024-01-12 15:18] LABS: ALB/GLOB Ratio 0.9 RATIO (0.9-2.4); AST(SGOT) 15 U/L (15-37); Alanine Aminotransfer ALT/SGPT 29 U/L (13-56); Albumin, Serum 3.7 g/dL (3.2-5.0); Alkaline Phosphatase 109 U/L (45-117); Anion Gap 3 (5-15); BUN 18 mg/dL (7-18); BUN/Creat Ratio 23.1 RATIO (10-20); Calcium,Total 9.3 mg/dL (8.5-10.1); Chloride 109 mmol/L (98-107); Creatinine, Serum 0.78 mg/dL (0.55-1.02); EST Glomerular Filtration Rate 81 mL/min (>60); Est Glom Filt Rate - Afr Amer 98 mL/min (>60); Globulin 4.1 g/dL (2.2-4.2); Glucose 88 mg/dL (74-106); Potassium 4.2 mmol/L (3.5-5.1); Protein, Total 7.8 g/dL (6.4-8.2); Sodium Level 138 mmol/L (136-145)
[2024-01-20 16:08] LABS: Age Gdln ACOG Testing 30-65 (.); HPV APTIMA, High Risk Negative (Negative)
[2024-01-20 16:48] LABS: HPV Reflexed? YES, CHARGE PATIENT
== END | disposition home or self-care (01) ==
LOC: BFHLAB 11:49
PROVIDERS: PCP Family Medicine; Referring Provider Family Medicine; Visit Provider Family Medicine
DX: Z12.4 Encounter for screening for malignant neoplasm of cervix (principal); R03.0 Elevated blood-pressure reading, without diagnosis of hypertension
CPT/HCPCS: 36415; 80053; 85025; 87624; 88175; G0145